=== PATIENT | male | born 1965 | race African-American/Black ===

== ENCOUNTER 2017-10-31 04:30 | Emergency (ER) | payer MEDICAID ==
[~2017-10-31] VITALS: Ht 190.5 cm; Wt 95.0 kg
[2017-10-31 04:33] VITALS: BP 149/103
== END 2017-10-31 06:35 | disposition home or self-care (01) ==
LOC: ER 04:45
DX: S30.812A Abrasion of penis, initial encounter (principal); X58.XXXA Exposure to other specified factors, initial encounter; Y93.9 Activity, unspecified; Y92.89 Other specified places as the place of occurrence of the external cause
CPT/HCPCS: 99282

== ENCOUNTER 2018-10-23 15:22 | Emergency (ER) | payer MEDICAID, OTHER ==
[~2018-10-23] VITALS: Ht 190.5 cm; Wt 95.0 kg
[2018-10-23] MEDS ORDERED: TETANUS, DIPHTHERIA, PERTUSSIS VAC/PF 0.5ML (>7YR OLD) IM ONE (21:30)
[2018-10-23] MEDS ORDERED: LIDOCAINE HCL/PF 1% 10 MG/ML 5ML VIAL IJ ONE (21:30)
[2018-10-23] MEDS ORDERED: BACITRACIN ZINC OINT UDPKT TOP ONE (21:30)
[2018-10-23 22:21] VITALS: BP 145/74
== END 2018-10-23 22:30 | disposition home or self-care (01) ==
LOC: ER 15:22
DX: S81.811A Laceration without foreign body, right lower leg, initial encounter (principal); F12.10 Cannabis abuse, uncomplicated; V18.0XXA Pedal cycle driver injured in noncollision transport accident in nontraffic accident, initial encounter; W25.XXXA Contact with sharp glass, initial encounter; Y93.89 Activity, other specified; Y92.89 Other specified places as the place of occurrence of the external cause
CPT/HCPCS: 12001; 90471; 90715; 99283; J3490

== ENCOUNTER 2018-11-23 00:43 | Emergency (ER) | payer OTHER ==
[~2018-11-23] VITALS: Ht 190.5 cm; Wt 102.0 kg
[2018-11-23 03:34] VITALS: BP 129/91
== END 2018-11-23 04:04 | disposition left against medical advice (07) ==
LOC: ER 00:43
DX: Z48.02 Encounter for removal of sutures (principal)
CPT/HCPCS: 99281; Z7610

== ENCOUNTER 2021-12-02 02:04 | Emergency (ER) | payer OTHER ==
[~2021-12-02] VITALS: Ht 190.5 cm; Wt 98.0 kg
[2021-12-02 02:12] VITALS: BP 140/95
[2021-12-02] MEDS ORDERED: CEFTRIAXONE SODIUM 500 MG/VIAL IM ONE (03:15)
[2021-12-02] MEDS ORDERED: DOXYCYCLINE HYCLATE 100MG CAPSULE PO ONE (03:15)
[2021-12-02] MEDS ORDERED: LIDOCAINE HCL 1% 20ML VIAL (Pyxis) INJ INFIL ONE (03:15)
[2021-12-02] MEDS ORDERED: DOXY100T2 MT (03:22)
[2021-12-05 04:10] LABS: NEISSERIA GONORRHOEAE NAA Negative (Negative)
== END 2021-12-02 03:30 | disposition home or self-care (01) ==
LOC: ER 02:04
DX: A74.9 Chlamydial infection, unspecified (principal); I10 Essential (primary) hypertension
CPT/HCPCS: 87491; 87591; 96372; 99283; J0696; J3490

== ENCOUNTER 2025-04-18 13:19 | Emergency (ER) | payer OTHER ==
[~2025-04-18] VITALS: Ht 182.9 cm; Wt 88.0 kg
[~2025-04-18 13:19] MED LIST: DOXY100T2 MT
[2025-04-18 13:23] VITALS: O2SAT 99
[2025-04-18 15:22] VITALS: BP 144/85; PULSE 75; RESP 18; TEMP 37; O2SAT 100
== END 2025-04-18 15:38 | disposition home or self-care (01) ==
LOC: ER 13:19 → EDBEDREQ 13:35 → CANBEDREQ 15:02 → ER 15:38
DX: S09.90XA Unspecified injury of head, initial encounter (principal); F12.10 Cannabis abuse, uncomplicated; I10 Essential (primary) hypertension; Z98.890 Other specified postprocedural states; W11.XXXA Fall on and from ladder, initial encounter; Y93.89 Activity, other specified; Y92.89 Other specified places as the place of occurrence of the external cause; Y99.8 Other external cause status
CPT/HCPCS: 99284

== ENCOUNTER 2025-07-06 17:21 | Emergency (ER) | payer OTHER ==
[~2025-07-06] VITALS: Ht 190.5 cm; Wt 97.0 kg
[2025-07-06 17:28] VITALS: TEMP 36.7; O2SAT 99
[2025-07-06] MEDS: LIDOCAINE 5% PATCH TOP SCH (18:51)
[2025-07-06] MEDS: KETOROLAC 30MG/ML VIAL IM ONE (18:51)
[2025-07-06] MEDS: ACETAMINOPHEN 325MG TABLET PO ONE (18:52)
[2025-07-06] MEDS ORDERED: IBUP-2028 MT (19:52)
[2025-07-06] MEDS ORDERED: ACET-2708 MT (19:52)
[2025-07-06 20:08] VITALS: BP 129/79; PULSE 92; RESP 19; O2SAT 100
== END 2025-07-06 20:23 | disposition home or self-care (01) ==
LOC: ER 17:21
DX: M25.561 Pain in right knee (principal); M79.18 Myalgia, other site; G44.309 Post-traumatic headache, unspecified, not intractable; I10 Essential (primary) hypertension; W18.30XA Fall on same level, unspecified, initial encounter; Y93.89 Activity, other specified; Y92.89 Other specified places as the place of occurrence of the external cause; Y99.8 Other external cause status
CPT/HCPCS: 72170; 73560; 73610; 96372; 99284; J1885; A6449; Z7610